=== PATIENT | female | born 1940 | race Hispanic/Latino ===

== ENCOUNTER 2024-12-07 14:06 | Emergency (ER) | payer OTHER ==
[~2024-12-07] VITALS: Ht 160 cm; Wt 72.1 kg
[2024-12-07 15:39] LABS: IMMATURE GRANULOCYTE ABSOLUTE 0.03 K/uL (0-1); NUCLEATED RED BLOOD CELLS 0.0 % (0.0-0.19); PLATELET COUNT (AUTO) 361 K/uL (130-400); RED BLOOD CELL COUNT(AUTO) 4.12 MIL/uL (4.00-5.50); RED CELL DISTRIBUTION WIDTH 12.6 % (11.0-15.5); WHITE BLOOD COUNT (AUTO) 11.7 K/uL (4.8-10.8)
[2024-12-07 15:52] LABS: CREATININE 1.8 mg/dL (0.5-1.0); GLOMERULAR FILTR. RATE CALC 28.0 mL/min (>90); GLUCOSE,RANDOM 134.0 mg/dL (70-105); SODIUM SERUM 140.0 mmol/L (136-145); UREA NITROGEN, BLOOD 41.0 mg/dL (7-18)
[2024-12-07 17:26] LABS: ADD UA MICROSCOPIC YES; APPEARANCE,URINE TURBID (CLEAR); GLUCOSE, URINE (UA) NEGATIVE (NEGATIVE); LEUKOCYTE ESTERASE ,URINE 25 Leu/uL (NEGATIVE); NITRATE,URINE NEGATIVE (NEGATIVE); OCCULT BLOOD,URINE LARGE (NEGATIVE)
--- NOTE | 2024-12-07 18:34 | ERN ---
ED Note History of Present Illness Stated Complaint: BLOOD IN URINE Chief Complaint: Blood in Urine: Time Seen by MD: 14:16 Time Seen by Midlevel: 14:16 Dictation: The patient is an 84-year-old female with a history of diabetes, hypertension, cholecystectomy who presents to the emergency department with complaints of bloody urination onset yesterday. Patient denies any abdominal pain, back pain, nausea or vomiting, fevers. Allergies: Coded Allergies: No Known Drug Allergies (Unverified Allergy, Unknown, 12/07/24) Home Meds Active Scripts Nitrofurantoin Monohyd/M-Cryst (Macrobid 100 mg Capsule) 100 Mg Capsule, 1 CAP PO BID for 5 Days, #10 CAP 0 Refills Prov:GREG BILLINGS DISTRICT ATTORNEY 12/07/24 Past Medical History Past Medical History: Diabetes-Type II, Hypertension, Hypothyroid, Other Additional Past Medical Hx: kidney issues Surgical History: Cholecystectomy, Other Surgical History Other: back sx RN Note Reviewed/Agreed w/PFSH: Yes Review of System Dictation Constitutional: Negative for fever,chills, and weight loss Eyes: Negative for injury, pain,redness, and discharge ENT: Negative for injury,pain or swelling Cardiovascular: Negative for chest pain, palpitations, and edema Respiratory: Negative for shortness of breath, cough, and wheezing, Abdomen/GI: Negative for abdominal pain, nausea, vomiting, diarrhea, and constipation Back: Negative for injury and pain : Positive for bloody urine MS/Extremity: Negative for injury and deformity Skin: Negative for rash, and discoloration Neuro: Negative for headache, weakness, numbness, tingling, and seizure Psych: Negative for suicide ideation, homicidal ideation, and hallucinations Initial Vital Sign VS Vital Signs Date Time Temp Pulse Resp B/P (MAP) Pulse Ox O2 Delivery O2 Flow Rate FiO2 12/07/24 14:12 97.9 75 16 138/60 94 Nasal Cannula 0 12/07/24 14:14 21 Physical Exam Dictation Vital Signs reviewed General Appearance: Alert, oriented x 3, no acute distress, well developed, nourished. Head and Face: non-traumatic. Eyes: PERRL, pink conjunctivas, eyelid no trauma, anterior chamber with arcus senilis. Ears: Pinnas intact and no signs of trauma or erythema ear canals clear and no discharge TM no erythema Nose: No discharge, no bleeding. Oropharynx: Mouth normal, tongue pink. pharynx clear,no erythema, tonsils no exudates, no abscesses noted, mucous membrane moist Neck: Supple, non-tender, no thyromegaly, no masses, no JVD, no bruits Breast:Deferred Chest:No tenderness, no crepitus, no paradoxical movement, no retractions Lungs:Clear, well-ventilated, symmetric, no rales, no wheezing, no rhonchi, no stridor, good breath sounds bilaterally Heart: Regular rate, regular rhythm, no murmur, no gallops Vascular: no peripheral edema, Abdomen: Soft, positive bowel sounds, nondistended, no guarding, nontender, no rebound, no masses no hepatomegaly, no splenomegaly, no Triplett's sign, no hernias. Rectal: Deferred Genital: Deferred Neurological: Normal speech, motor function intact, sensory function intact Musculoskeletal: Neck nontender, full range of motion, back nontender, full range of motion, Extremities: nontender, full range of motion Skin: Color pink, dry, no turgor, no rash, no lacerations, no abrasions, no contusions. Lymphatic: Deferred Results (Laboratory/Radiology) Laboratory/Radiology Laboratory Tests Test 12/07/24 15:22 12/07/24 17:09 White Blood Count 11.7 K/uL (4.8-10.8) H Red Blood Count 4.12 MIL/uL (4.00-5.50) Hemoglobin 12.4 g/dL (12.0-16.0) Hematocrit 37.3 % (36-48) Mean Corpuscular Volume 90.5 fL (79-99) Mean Corpuscular Hemoglobin 30.1 pg (27.0-33.0) Mean Corpuscular Hemoglobin Concent 33.2 g/dL (32.0-36.0) Red Cell Distribution Width 12.6 % (11.0-15.5) Platelet Count 361 K/uL (130-400) Mean Platelet Volume 9.2 fL (7.5-10.5) Immature Granulocyte % (Auto) 0.3 % (0-1) Neutrophils (%) (Auto) 60.8 % (40.0-77.0) Lymphocytes (%) (Auto) 30.2 % (21.0-51.0) Monocytes (%) (Auto) 6.0 % (3.0-13.0) Eosinophils (%) (Auto) 2.2 % (0.0-8.0) Basophils (%) (Auto) 0.5 % (0.0-5.0) Neutrophils # (Auto) 7.1 K/uL (1.8-7.7) Lymphocytes # (Auto) 3.5 K/uL (1.0-4.8) Monocytes # (Auto) 0.7 K/uL (0.1-1.0) Eosinophils # (Auto) 0.26 K/uL (0.00-0.70) Basophils # (Auto) 0.06 K/uL (0.00-0.20) Absolute Immature Granulocyte (auto 0.03 K/uL (0-1) Nucleated Red Blood Cells 0.0 % (0.0-0.19) Sodium Level 140 mmol/L (136-145) Potassium Level 4.2 mmol/L (3.5-5.1) Chloride Level 100 mmol/L (101-111) L Carbon Dioxide Level 34 mmol/L (21-32) H Blood Urea Nitrogen 41 mg/dL (7-18) H Creatinine 1.8 mg/dL (0.5-1.0) H Glomerular Filtration Rate Calc 28 mL/min (>90) Random Glucose 134 mg/dL (70-105) H Total Calcium 9.5 mg/dL (8.5-10.1) Urine Color BROWN (YELLOW) Urine Appearance TURBID (CLEAR) Urine pH 6.5 (5.0-8.0) Urine Specific [place] 1.006 (1.001-1.031) Urine Protein 50 mg/dL (NEGATIVE) H Urine Glucose (UA) NEGATIVE mg/dL (NEGATIVE) Urine Ketones NEGATIVE mg/dL (NEGATIVE) Urine Occult Blood LARGE (NEGATIVE) H Urine Nitrate NEGATIVE (NEGATIVE) Urine Bilirubin NEGATIVE mg/dL (NEGATIVE) Urine Urobilinogen 0.2 mg/dL (0.2-1.0) Urine Leukocyte Esterase 25 Severino/uL (NEGATIVE) H Urine RBC TNTC /HPF (0-1) H Urine WBC None /HPF (0-1) Urine Bacteria None /HPF (None Seen) REASON: hematuria ORDERING PHYSICIAN: GREG BILLINGS [facility] ATTORNEY PROCEDURE: ABD PEL WO - CT ABDOMEN/PELVIS W/O CONTRAST EXAMINATION: CT Abdomen and Pelvis Without IV contrast CLINICAL HISTORY: Patient presents with hematuria. COMPARISON: None provided. TECHNIQUE: Axial computed tomography images of the abdomen and pelvis without intravenous contrast. CONTRAST: No IV contrast. FINDINGS: LUNG BASES: The lung bases are clear. No pleural effusion. LIVER: Unremarkable. GALLBLADDER AND BILE DUCTS: The gallbladder is surgically absent. No biliary ductal dilatation. PANCREAS: Unremarkable. SPLEEN: Unremarkable. ADRENAL GLANDS: Unremarkable. KIDNEYS, URETERS, AND BLADDER: Bilateral minimal nonspecific perinephric fat stranding, which may reflect renal parenchymal disease. Left renal cyst in the interpolar region measuring 1.6 x 1.7 x 1.7 cm. The right kidney demonstrates an altered axis. No renal or ureteric calculus. No hydronephrosis or hydroureter. Urinary bladder is incompletely distended with diffuse wall thickening, maximum thickness approximately 0.7 cm, concerning for cystitis. STOMACH AND BOWEL: Unremarkable appearance of the stomach and bowel. No evidence of bowel obstruction. No evidence suggesting enteritis or colitis. APPENDIX: No evidence of acute appendicitis on CT examination. PERITONEUM: No free fluid. No free air. LYMPH NODES: No lymphadenopathy. REPRODUCTIVE: Fundal subserosal calcified uterine fibroid measuring 1.2 x 1.2 x 1.2 cm. No focal adnexal lesion. VASCULATURE: Atheromatous calcifications in the aorta without evidence of aneurysm. ABDOMINAL WALL: Fat-containing umbilical hernia. Fat-containing ventral abdominal wall hernia in the left lumbar region, defect measuring approximately 1.8 x 2.0 cm, with herniation of omental fat. No herniation of bowel loops. BONES: Multilevel moderate degenerative changes of the spine. Postsurgical changes with pedicle fixation screws and lumbar interbody fusion in the lower lumbosacral spine. No aggressive appearing osseous lesion. IMPRESSION: Diffuse urinary bladder wall thickening with maximum wall thickness of approximately 0.7 cm, concerning for cystitis. Bilateral minimal nonspecific perinephric fat stranding, which may reflect renal parenchymal disease. Left renal cyst in the interpolar region measuring 1.6 x 1.7 x 1.7 cm. Fat-containing umbilical hernia. Fat-containing left lumbar ventral abdominal wall hernia with herniation of omental fat, defect measuring approximately 1.8 x 2.0 cm. No herniation of bowel loops. Fundal subserosal calcified uterine fibroid measuring 1.2 x 1.2 x 1.2 cm. Postsurgical changes in the lower lumbosacral spine with pedicle fixation screws and lumbar interbody fusion. /[place] Labs Reviewed?: Yes ED Course ED Course Orders Procedure Category Date Status Time Cbc With Differential LAB 12/07/24 Complete 14:35 Urinalysis Profile LAB 12/07/24 Complete 14:35 Basic Metabolic Panel LAB 12/07/24 Complete 14:35 Ct Abdomen/Pelvis W/O CT 12/07/24 Resulted Contrast 17:25 Ceftriaxone 1g Vial PHA 12/07/24 Complete (Rocephine 1g Inj) 19:30 0.9% Nacl 500ml PHA 12/07/24 Complete Iv.Soln (Ns 500ml 19:30 Current Medications Medications (Trade) Dose Ordered Sig/Ryan Route PRN Reason Start Time Stop Time Status Last Admin Dose Admin Ceftriaxone Sodium (ROCEphine 1G INJ) 1 gm ONCE ONCE IVPB 12/07/24 19:30 12/07/24 19:31 DC 12/07/24 19:32 Sodium Chloride 500 ml @ 0 mls/hr ONCE ONCE IV 12/07/24 19:30 12/07/24 19:31 DC 12/07/24 19:33 Vital Signs Date Time Temp Pulse Resp B/P (MAP) Pulse Ox O2 Delivery O2 Flow Rate FiO2 12/07/24 19:41 98.2 67 16 122/68 96 Room Air* 0 21 12/07/24 14:14 97.9 75 16 138/60 94 Room Air* 0 21 12/07/24 14:12 97.9 75 16 138/60 94 Nasal Cannula 0 Medical Decision Making MDM The patient is an 84-year-old female with a history of diabetes, hypertension, cholecystectomy who presents to the emergency department with complaints of bloody urination onset yesterday. Patient denies any abdominal pain, back pain, nausea or vomiting, fevers. CBC showed mild leukocytosis, no anemia, creatinine of 1.8 Patient with a history of CKD. Reports that her kidney functions at stage III, mild hypochloremia, urinalysis positive for leukocyte esterase. CT abdomen showed urinary bladder wall thickening concerning for cystitis. I discussed laboratory findings and CT findings with the patient. I discussed with her the possibility of admission to the hospital for IV antibiotics. At this time patient does not want to be admitted to the hospital. She would like to be treated as outpatient. Patient reports she has an appointment with her pcp on Tuesday and with in two weeks. On physical exam patient is in no acute distress, nontoxic appearance, nontender abdomen, stable vital signs. Patient to be discharge. Differential diagnosis: UTI, pyelonephritis, kidney stones, dehydration Need for hospitalization: Patient does not meet criteria for hospitalization. There are no social concerns with this patient. DX & DISP Disposition: Discharge Departure Impression: Primary Impression: Urinary tract infection with hematuria Additional Impression: CKD (chronic kidney disease) Condition: Stable Scripts Nitrofurantoin Monohyd/M-Cryst (Macrobid 100 mg Capsule) 100 Mg Capsule 1 CAP PO BID for 5 Days, #10 CAP 0 Refills Prov: GREG BILLINGS 12/07/24 Additional Instructions: Please follow up with your primary doctor in 1-2 days. Take your medications as prescribed. If anything worsens please return to ER. FOLLOW-UP WITH PRIMARY CARE PROVIDER IN 1 TO 2 DAYS. TAKE MEDICATIONS DIRECTED HERE IN THE EMERGENCY ROOM. OKAY TO CONTINUE HOME MEDICATIONS UNLESS OTHERWISE DISCUSSED DURING YOUR VISIT IN THE EMERGENCY ROOM TODAY. RETURN TO YOUR NEAREST EMERGENCY ROOM IF SYMPTOMS WORSEN OR IF THERE IS NO IMPROVEMENT. CALL 911 IF YOU NEED IMMEDIATE ASSISTANCE. TAKE TYLENOL [id number] NEEDED AND IF NO CONTRAINDICATIONS ARE PRESENT. INCREASE ORAL HYDRATION. A WOUND CULTURE OR URINE CULTURE WAS ORDERED HERE IN THE EMERGENCY ROOM DEPARTMENT PLEASE FOLLOW-UP WITH PRIMARY CARE PROVIDER AND ADVISE THEM TO GET REPEAT PORTS FROM OUR FACILITY. IF YOU HAD ANY SHERITA WRAP/SPLINTS THAT WERE APPLIED HERE, PLEASE DO NOT REMOVE THEM UNTIL YOU SEE YOUR PRIMARY CARE OR SPECIALTY. Referrals: ETELVINA PEARSON MD (PCP) Time of Disposition: 19:42 I have reviewed the case, and I agree with, Diagnosis and Plan GREG BILLINGS Dec 07, 2024 18:34
--- NOTE | 2024-12-07 19:05 | HMCIMG ---
EXAMINATION: CT Abdomen and Pelvis Without IV contrast CLINICAL HISTORY: Patient presents with hematuria. COMPARISON: None provided. TECHNIQUE: Axial computed tomography images of the abdomen and pelvis without intravenous contrast. CONTRAST: No IV contrast. FINDINGS: LUNG BASES: The lung bases are clear. No pleural effusion. LIVER: Unremarkable. GALLBLADDER AND BILE DUCTS: The gallbladder is surgically absent. No biliary ductal dilatation. PANCREAS: Unremarkable. SPLEEN: Unremarkable. ADRENAL GLANDS: Unremarkable. KIDNEYS, URETERS, AND BLADDER: Bilateral minimal nonspecific perinephric fat stranding, which may reflect renal parenchymal disease. Left renal cyst in the interpolar region measuring 1.6 x 1.7 x 1.7 cm. The right kidney demonstrates an altered axis. No renal or ureteric calculus. No hydronephrosis or hydroureter. Urinary bladder is incompletely distended with diffuse wall thickening, maximum thickness approximately 0.7 cm, concerning for cystitis. STOMACH AND BOWEL: Unremarkable appearance of the stomach and bowel. No evidence of bowel obstruction. No evidence suggesting enteritis or colitis. APPENDIX: No evidence of acute appendicitis on CT examination. PERITONEUM: No free fluid. No free air. LYMPH NODES: No lymphadenopathy. REPRODUCTIVE: Fundal subserosal calcified uterine fibroid measuring 1.2 x 1.2 x 1.2 cm. No focal adnexal lesion. VASCULATURE: Atheromatous calcifications in the aorta without evidence of aneurysm. ABDOMINAL WALL: Fat-containing umbilical hernia. Fat-containing ventral abdominal wall hernia in the left lumbar region, defect measuring approximately 1.8 x 2.0 cm, with herniation of omental fat. No herniation of bowel loops. BONES: Multilevel moderate degenerative changes of the spine. Postsurgical changes with pedicle fixation screws and lumbar interbody fusion in the lower lumbosacral spine. No aggressive appearing osseous lesion. IMPRESSION: Diffuse urinary bladder wall thickening with maximum wall thickness of approximately 0.7 cm, concerning for cystitis. Bilateral minimal nonspecific perinephric fat stranding, which may reflect renal parenchymal disease. Left renal cyst in the interpolar region measuring 1.6 x 1.7 x 1.7 cm. Fat-containing umbilical hernia. Fat-containing left lumbar ventral abdominal wall hernia with herniation of omental fat, defect measuring approximately 1.8 x 2.0 cm. No herniation of bowel loops. Fundal subserosal calcified uterine fibroid measuring 1.2 x 1.2 x 1.2 cm. Postsurgical changes in the lower lumbosacral spine with pedicle fixation screws and lumbar interbody fusion. /[place]
[2024-12-07] MEDS: 0.9% NACL 500ML IV.SOLN 500 ML IV ONE (19:33)
[2024-12-07] MEDS ORDERED: NITR100C4 PO (19:42)
[2024-12-07 20:47] VITALS: BP 138/70; PULSE 62; RESP 18; TEMP 98; O2SAT 96
== END 2024-12-07 20:57 | disposition home or self-care (01) ==
LOC: EDH 14:06
DX: N39.0 Urinary tract infection, site not specified (principal); I12.9 Hypertensive chronic kidney disease with stage 1 through stage 4 chronic kidney disease, or unspecified chronic kidney disease; E11.22 Type 2 diabetes mellitus with diabetic chronic kidney disease; N18.9 Chronic kidney disease, unspecified; E03.9 Hypothyroidism, unspecified; Z90.49 Acquired absence of other specified parts of digestive tract; Z98.1 Arthrodesis status
CPT/HCPCS: 99285; 74176; 96365; 80048; 85025; 81001; 36415; J7040; J0696